=== PATIENT | female | born 1990 | race African-American/Black ===

== ENCOUNTER 2024-05-28 09:17 | Outpatient (AMB) | payer OTHER, SELFPAY ==
--- NOTE | 2024-05-28 09:18 | MHC.OFFWIV ---
Intake Vital Signs 05/28/24 09:29 Height 5 ft 2 in Weight 214 lb 2 oz BMI 39.2 BP 110/70 Blood Pressure Location Lt brachial Position Sitting Pulse 104 H Pulse Source Pulse Oximeter Pulse Oximetry (%) 96 Oxygen Delivery Method Room Air Intake Visit Reasons: [employer]-uti Intake Note: Patient here for burning when urinating, white discharge that has been present for about 1 week and was put on cream for BV and when she finished it her symptoms came back. Patient Tobacco Use Status: Current everyday Tobacco user Allergies No Known Drug Allergies Allergy (Unknown, Unverified 05/28/24 09:47) none Do you need a note to return to daycare/school/sports/work: No HPI [employer]-uti HPI Details This note is constructed using voice recognition software. While every effort has been made to ensure accuracy, lock tender errors may have been included. The patient is a 34 year old female who presents to the clinic today with urinary frequency, urgency, and burning. She notes that she was recently treated with Metrogel for BV. She notes in the past when she has been treated for this she has also developed a UTI. The symptoms started shortly after starting the medication. She has never tried the oral treatment for BV, but intends to do so any future episodes of BV. She denies fever, chills, body aches, back pain. [facility] Social History Patient Tobacco Use Status: Current everyday Tobacco user Review of Systems Const All systems reviewed & are unremarkable except as noted in HPI and below Physical Exam Vital Signs: Last Vital Signs Pulse 104 H 05/28/24 09:29 BP 110/70 05/28/24 09:29 Pulse Ox 96 05/28/24 09:29 Oxygen Delivery Method Room Air 05/28/24 09:29 BMI result Body Mass Index 39.2 Const General: cooperative, healthy appearing, comfortable, no acute distress and alert Orientation/consciousness: patient oriented x3 Limitations: no limitations Resp Effort & Inspection: normal respiratory effort and able to speak in complete sentences Other: Deferred General: Yes no CVA tenderness Back/Spine/Pelvis Back: no CVA tenderness Skin General skin exam: no rashes or lesions noted, elasticity normal and turgor normal Neuro General: patient oriented x3 Psych Appearance: grossly normal Mental Status: mental status grossly normal Speech and movement: Normal speech and movement present Affect: normal affect Assessment & Plan Assessment & Plan (1) UTI (urinary tract infection): Code(s): N39.0 - Urinary tract infection, site not specified Qualifiers: Urinary tract infection type: acute cystitis Hematuria presence: without hematuria Qualified Code(s): N30.00 - Acute cystitis without hematuria Plan: Supportive measures encouraged and reviewed. Antibiotic sent to requested pharmacy, advised patient to take antibiotics until completed and not to stop if feeling better, unless the patient has side effects. Pyridium prescription sent for antispasmodic effects. Advised patient to follow up with primary care provider with worsening or failure to resolve. Plan See above for full details and plan. Medications: New nitrofurantoin monohyd/m-cryst 100 mg must administer with a meal/food 100 mg PO Q12H 5 days 10 caps 0RF phenazopyridine (Pyridium) 100 mg PO TID PRN 6 tabs 0RF pain Coding Level of Care Code New Pt Level 3 (49942) Diagnoses Acute cystitis without hematuria N30.00 Urinary tract infection type: acute cystitis Hematuria presence: without hematuria
[2024-05-28 09:29] VITALS: BP 110/70; PULSE 104; O2SAT 96; BMI 39.2
== END 2024-05-28 11:30 | disposition home or self-care (01) ==
PROVIDERS: Visit Provider Registered Nurse
DX: Z13.9 Encounter for screening, unspecified (principal); N30.00 Acute cystitis without hematuria

== ENCOUNTER → 2024-05-28 09:17 | Outpatient (BNVA) | payer OTHER, SELFPAY | PROVIDERS: Visit Provider Registered Nurse | DX: N30.00 Acute cystitis without hematuria (principal) | CPT/HCPCS: 81003; 99202 ==